=== PATIENT | male | born 2005 | race Caucasian/White ===

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

== ENCOUNTER 2025-04-25 01:09 | Emergency (ER) | payer OTHER ==
[~2025-04-25] VITALS: Ht 193 cm; Wt 72.6 kg
[~2025-04-25 01:09] MED LIST changes: +Motrin,Rufen800 MG PO
[2025-04-25] MEDS ORDERED: IOHEXOL 300 MG/ML 100 ML VIAL IV ONE (01:35)
[2025-04-25 01:38] LABS: HEMATOCRIT 42.9 % (42.0-52.0); MEAN CELL VOLUME 88.6 fl (80.0-94.0); MEAN CORPUSCULAR HGB 28.7 pg (27.0-31.0); MEAN CORPUSCULAR HGB CONC 32.4 g/dl (33.0-37.0); MEAN PLATELET VOLUME 9.3 fl (9.6-12.3); PLATELET COUNT AUTOMATED 295 10*3/uL (130-400); RED BLOOD COUNT 4.84 10*6/uL (4.50-5.90); RED CELL DISTRI WIDTH 13.2 % (0-14.5); WHITE BLOOD COUNT 11.3 10*3/uL (4.8-10.8)
[2025-04-25] MEDS ORDERED: IOHEXOL 300 MG/ML 100 ML VIAL ONE (01:59)
[2025-04-25 02:01] LABS: MANUAL DIFF REFLEX YES
[2025-04-25 02:03] LABS: ATYPICAL LYMPHS 1 % (0-0); PLATELET SUFFICIENCY NORMAL (NORMAL); TOTAL CELLS COUNTED 100 #CELLS
[2025-04-25] MEDS ORDERED: Ondansetron Hydrochloride 4 MG/2 ML VIAL IV ONE (02:25)
[2025-04-25] MEDS ORDERED: Ondansetron4 MG PO (03:56)
[2025-04-25] MEDS ORDERED: METHOCARBAMOL500 M1 PO (03:56)
[2025-04-25] MEDS ORDERED: NAPROXEN250 MG PO (03:56)
== END 2025-04-25 04:05 | disposition home or self-care (01) ==
LOC: ED 01:09
PROVIDERS: Internal Medicine
DX: S06.0X0A Concussion without loss of consciousness, initial encounter (principal); Z79.899 Other long term (current) drug therapy; V86.55XA Driver of 3- or 4- wheeled all-terrain vehicle (ATV) injured in nontraffic accident, initial encounter; Y93.89 Activity, other specified; Y92.488 Other paved roadways as the place of occurrence of the external cause; Y99.8 Other external cause status